=== PATIENT | male | born 1975 | race Two or more races ===

== ENCOUNTER 2018-01-09 09:33 | Outpatient (CLI) | payer OTHER ==
[2018-01-09] MEDS ORDERED: GADOBUTROL 10 MMOL/10 ML VIAL ONE (09:51)
[2018-01-09] MEDS ORDERED: GADOBUTROL 10 MMOL/10 ML VIAL IVP ONE (10:53)
--- NOTE | 2018-01-09 13:15 | MRI Preliminary Report ---
Exam: MRI BRAIN W/WO IMPRESSION: 1. There is a large lobular partially cystic predominantly intra-axial mass centered in the inferior right frontal lobe. Posterior extension into the suprasellar cistern and lamina terminalis is seen. P osterior inferior extension into the anterior right temporal lobe is seen. Right to left extension in to the left gyrus rectus is noted. This measures 39 x 74 x 57 mm. Encasement of right MCA and proxima l bilateral TIFFANIE is seen with mass effect. Findings are consistent with primary neoplasm. Differential considerations would include oligodendroglioma, astroblastoma, and glial neuronal tumor. Critical result: Findings are discussed with the marketing liaison for this patient on 01/09/2018 at 1306 hr s. [facility] SITE ID: [id number]
--- NOTE | 2018-01-09 13:31 | MRI Report ---
EXAM: MRI BRAIN WITHOUT AND WITH CONTRAST EXAM DATE: 01/09/2018 10:42 AM. CLINICAL HISTORY: Altered mental status, disorder of brain. Patient is experiencing intermittent epis odes of decreased awareness and confusion. COMPARISON: None. TECHNIQUE: Multiplanar, multisequence T1-weighted and fluid-sensitive MR sequences of the brain were performed. Sequences optimized for routine evaluation. Other: None. IV Contrast: 9 mL Gadavist. FINDINGS: Brain Volume: Normal for age. Parenchyma: There is a large heterogeneous mass centered in the inferior right frontal lobe at the fl oor of the anterior cranial fossa. This is extends posteriorly into the suprasellar cistern region an d lamina terminalis. Elevation and posterior displacement of the lamina terminalis and anterior corpu s callosum is evident. Inferior and posterior displacement of the optic chiasm is seen. Deep extensio n across the anterior perforated substance into the adjacent anterior right temporal lobe is seen. Ma ss-effect on the right MCA is noted. Mass-effect and encasement of proximal TIFFANIE is seen bilaterally. Mass crosses midline from [id number]-[id number] to involve the left orbital gyrus as well. Mass demonstrates predominantly heterogeneous hypointense with scattered isointense T1 signal without significant enhan cement. Predominant diffuse hyperintense T2 and FLAIR signal is seen. The mass measures approximately 39 x 74 x 57 mm (SI by AP by RL). Otherwise, there are a few scattered foci of T2/FLAIR bright signal seen in the cerebral hemispheres. No restricted diffusion is seen to suggest acute ischemia. No hemorrhage. Ventricles/Cisterns: Mass-effect on the anterior lateral ventricles is seen, greater on the right. Th ere is elevation and mild right to left midline shift. No acute hydrocephalus. No abnormal extra-axia l fluid collection or hemorrhage. Orbits: Symmetric and unremarkable. Sella Turcica: Effacement of the suprasellar cistern is noted. Posterior displacement of the pituitar y stalk is seen. Effacement of the superior aspect of the pituitary gland is noted. The cavernous sin uses are unremarkable. IAC: Symmetric and unremarkable. Vasculature: Normal signal flow void is seen in the major arterial structures at the skull base. The dural sinuses are patent and enhance normally. Sinuses: No acute sinus disease. Bones: No focal pathologic appearing marrow signal changes. Other: None. IMPRESSION: 1. There is a large lobular partially cystic, predominantly intra-axial mass centered in the inferior right frontal lobe. Posterior extension to the suprasellar cistern and lamina terminalis is seen. Po sterior-inferior extension into the anterior right temporal lobe is seen. Emmay-eb-[id number] extension int o the left gyrus rectus is noted. This measures 39 x 74 x 57 mm. Encasement of right MCA and proximal bilateral TIFFANIE is seen with mass-effect. Findings are consistent with a primary neoplasm. Differentia l considerations would include oligodendroglioma, astroblastoma, and glial neuronal tumor. Critical result: Findings are discussed with the market analyst for this patient on 01/09/2018 at 1306 hr s. [facility] Referring Provider Line: [phone] SITE ID: [id number]
== END 2018-01-09 09:34 | disposition home or self-care (01) ==
LOC: EDSEX → DI 09:33
PROVIDERS: ATTEND Student in an Organized Health Care Education/Training Program
DX: G93.9 Disorder of brain, unspecified (principal)
CPT/HCPCS: 70553; A9585

== ENCOUNTER 2018-03-25 09:41 | Outpatient (CLI) | payer OTHER ==
[~2018-03-25 09:41] MED LIST: GADOBUTROL 10 MMOL/10 ML SYRINGE ONE
[2018-03-25] MEDS ORDERED: GADOBUTROL 10 MMOL/10 ML SYRINGE IVP ONE (10:44)
--- NOTE | 2018-03-25 15:19 | MRI Report ---
EXAM: MRI BRAIN WITHOUT AND WITH CONTRAST EXAM DATE: 03/25/2018 10:51 AM. CLINICAL HISTORY: 42-year-old man with history of grade 2 astrocytoma status post resection on 2017. COMPARISON: 01/09/2018. TECHNIQUE: Multiplanar, multisequence T1-weighted and fluid-sensitive MR sequences of the brain were performed. Sequences optimized for routine evaluation. Other: None. IV Contrast: 9ML GADAVIST. FINDINGS: Parenchyma: Large, FLAIR hyperintense mass lesion centered in the right anterior inferior frontal lob e is again demonstrated. There has been interval partial resection/debulking of the anterolateral asp ect of the mass. The mass is not significantly changed in extent compared to the prior exam with exte nsion into the right insula, right anterior temporal lobe, and into the anterior septum pellucidum an d medial left frontal lobe. Cluster of small foci of enhancement are present in the deep aspect of th e mass adjacent to the genu of the right internal capsule (image 50, series 1002), increased from the prior exam. The cluster measures up to 13 mm in total diameter, previously 4 mm. No significant hemo rrhage apart from postsurgical changes. The remainder of the parenchyma is unremarkable except for several punctate foci of nonspecific FLAIR hyperintensity in the deep cerebral white matter, similar to the prior exam and a common finding in this age group. No evidence of acute infarct on diffusion-weighted sequence. Pituitary: Unremarkable. Ventricles and Extra-axial Spaces: Ttjwf-wu-[id number] midline shift measures proximal V4 millimeters at th e foramen of [place], previously 6 mm. There is persistent narrowing of the frontal horns of the later al ventricles bilaterally, right side more than left. Extra-axial spaces demonstrate postsurgical dur al enhancement and extradural fluid collection overlying the right frontal lobe measuring up to 9 mm in thickness. Orbits: Unremarkable. Sinuses: Paranasal sinuses and mastoid air cells are clear. Major Vascular Flow Voids: Intact. Dural Venous Sinuses and Major Central Veins: Patent on post-contrast images. The right transverse si nus is dominant. IMPRESSION: 1. Status post partial resection/debulking of large mass lesion centered in the right frontal lobe si nce the 01/09/2018 exam, consistent with history of astrocytoma. Small cluster of enhancement in the deep aspect of the tumor is increased compared to the prior exam. If there has been interval chemorad iation, increased enhancement may represent treatment related changes. However, the presence of enhan cement on the preoperative exam is concerning for astrocytoma of grade III or higher. [facility] Referring Provider Line: [phone] SITE ID: [id number]
== END 2018-03-25 09:42 | disposition home or self-care (01) ==
LOC: DI 09:41
PROVIDERS: ATTEND General Practice
DX: D49.6 Neoplasm of unspecified behavior of brain (principal)
CPT/HCPCS: 70553; A9585

== ENCOUNTER 2019-01-17 18:16 | Emergency (ER) | payer OTHER ==
--- NOTE | 2019-01-17 19:11 | ED Physician Documentation ---
PD HPI HEENT - Stated complaint Stated Complaint: LT EAR SWELLING/FATIGUE - Chief complaint Chief Complaint: Heent - History obtained from History obtained from: Patient - History of Present Illness Timing - onset: How many days ago (2) Timing - duration: Days (2) Timing - details: Abrupt onset, Still present Location: Left ear Worsens: Swalllowing Associated symptoms: Congestion. No: Fever, Facial swelling, Cough Recently seen: Not recently seen Review of Systems Constitutional: denies: Fever Ears: reports: Ear pain (left) Nose: reports: Congestion. denies: Rhinorrhea / runny nose Throat: denies: Sore throat Respiratory: reports: Cough GI: denies: Vomiting, Diarrhea Neurologic: denies: Altered mental status, Headache PD PAST MEDICAL HISTORY - Past Medical History Cardiovascular: None Respiratory: None Neuro: Other (brain tumor astrocytoma) - Past Surgical History Neuro: Craniotomy - Present Medications Home Medications: Ambulatory Orders Medication Instructions Recorded Confirmed Amoxicillin 500 mg PO TID #21 capsule 01/17/19 Cetirizine [ZyrTEC] 10 mg PO DAILY #15 tablet 01/17/19 Dexamethasone [Decadron] 4 mg PO DAILY #5 tablet 01/17/19 - Allergies Allergies/Adverse Reactions: Allergies Allergy/AdvReac Type Severity Reaction Status Date / Time No Known Drug Allergies Allergy Verified 01/17/19 18:24 - Social History Does the pt smoke?: No Smoking Status: Never smoker Does the pt drink ETOH?: No Does the pt have substance abuse?: No - Immunizations Immunizations are current?: Yes PD ED PE NORMAL - Vitals Vital signs reviewed: Yes - General General: Alert and oriented X 3, Well developed/nourished - HEENT HEENT: Pharynx benign. No: Ears normal (right okay; left with redness and fluid behind drum. ) - Neck Neck: Supple, no meningeal sign, Other (mild anterior adenopathy. ) - Cardiac Cardiac: RRR, No murmur - Respiratory Respiratory: Clear bilaterally - Abdomen Abdomen: Soft, Non tender - Derm Derm: Normal color, Warm and dry, No rash - Neuro Neuro: Alert and oriented X 3, No motor deficit, Normal speech Results - Vitals Vitals: Oxygen O2 Source Room air - Labs Labs: Laboratory Tests 01/17/19 19:47 Influenza A (Rapid) Negative Influenza B (Rapid) Negative PD MEDICAL DECISION MAKING - ED course Complexity details: considered differential, d/w patient Departure - Departure Disposition: 01 Home, Self Care Clinical Impression: Otitis media Qualifiers: Otitis media type: serous Chronicity: acute Laterality: left Recurrence: non- recurrent Qualified Code(s): H65.02 - Acute serous otitis media, left ear Condition: Stable Record reviewed to determine appropriate education?: Yes Instructions: ED Otitis Media Acute Adult Follow-Up: Jonathan Cook MD [Primary Care Provider] - Prescriptions: Amoxicillin 500 mg PO TID #21 capsule Cetirizine [ZyrTEC] 10 mg PO DAILY #15 tablet Dexamethasone [Decadron] 4 mg PO DAILY #5 tablet Comments: Your head CT shows the surgical changes and some residual mass but they say looks better than it was in March. There is no signs of obvious edema and cert ainly no acute bleeding. We will treat this as sinus congestion with ear congestion and infection. Use the amoxicillin 3 times a day for a week. Decadron daily for 5 days. Use antihistamine such as cetirizine daily for a week or 2. Tylenol or ibuprofen if needed for fever and pains. Your flu test is negative. It still could be influenza though more likely just a common virus/cold generally with the question of the ear infection as well. Discharge Date/Time: 01/17/19 21:04
[2019-01-17] MEDS ORDERED: ONDANSETRON ODT 4 MG TABLET TL STA (19:42)
[2019-01-17] MEDS ORDERED: AMOXICILLIN 250 MG CAPSULE PO STA (19:43)
[2019-01-17] MEDS ORDERED: DEXAMETHASONE 10 MG/ML VIAL PO STA (19:43)
[2019-01-17] MEDS ORDERED: diphenhydrAMINE 25 MG CAPSULE PO STA (19:43)
--- NOTE | 2019-01-17 20:44 | CT Report ---
Reason: headache and pressure; h/o brain CA and surgery Procedure Date: 01/17/2019 Accession Number: [id number] / [id number] Procedure: CT - HEAD WO CPT Code: FULL RESULT: EXAM: CT HEAD EXAM DATE: 01/17/2019 08:07 PM. CLINICAL HISTORY: 43-year-old with history of grade 2 astrocytoma post debulking presenting with headache. Evaluate for intracranial pathology. COMPARISON: Brain with and without contrast 03/25/2018 10:00 AM. TECHNIQUE: Multiaxial CT images were obtained from the foramen magnum to the vertex. Reformats: Sagittal and coronal. IV contrast: None. In accordance with CT protocol optimization, one or more of the following dose reduction techniques were utilized for this exam: automated exposure control, adjustment of mA and/or KV based on patient size, or use of iterative reconstructive technique. FINDINGS: Parenchyma: Post surgical changes of right frontotemporal craniotomy for resection of a right frontal lobe mass lesion. There is encephalomalacia and gliosis seen involving the right frontal lobe. Surrounding the resection cavity is masslike hyperdensity that when accounting for differences in technique appear slightly decreased in extent from MR brain 03/25/2018. There continues to be local mass-effect but no definite midline shift. Outside of the mass lesion resection cavity the cortical mantle carrasco-white distinction remains. No acute parenchymal hemorrhage seen. Extraaxial Spaces: Postsurgical changes of right frontal craniotomy. No new abnormal extra-axial fluid collection/mass seen. Cisterns appear patent. Ventricles: Effacement of the right lateral ventricle. No evidence of hydrocephalus or ventricular entrapment. No evidence of intraventricular hemorrhage. Sinuses and Orbits: The orbits appear normal. Small right maxillary mucosal retention cyst versus polyp. Mastoid air cells and middle ear cavities are clear. Bones: Post surgical changes of right frontotemporal craniotomy. No new calvarial fracture or defect seen. Other: None. IMPRESSION: 1. Post surgical changes of right frontal temporal craniotomy for resection/debulking of a grade 2 right frontal lobe astrocytoma. 2. There continues to be a mass surrounding the resection cavity that when accounting for differences in technique appear slightly decreased in extent from MR brain 03/25/2018. There is local mass effect but no significant midline shift. Consider MR brain with and without contrast for further evaluation of residual disease. 3. No definite acute infarct or acute intracranial hemorrhage seen. [facility]
[2019-01-17 20:58] VITALS: BP 131/90
== END 2019-01-17 21:04 | disposition home or self-care (01) ==
LOC: ED 18:16
DX: H65.02 Acute serous otitis media, left ear (principal); Z85.841 Personal history of malignant neoplasm of brain
CPT/HCPCS: 70450; 87275; 87276; 99283; A9270; Q0162

== ENCOUNTER 2019-05-16 21:01 | Emergency (ER) | payer OTHER ==
[2019-05-16 21:09] VITALS: BP 160/115
--- NOTE | 2019-05-16 21:18 | ED Physician Documentation ---
PD HPI HEENT - Stated complaint Stated Complaint: LT SIDE MOUTH PAIN - Chief complaint Chief Complaint: Heent - History obtained from History obtained from: Patient - History of Present Illness Timing - onset: Today (this morning) Pain level now: 8 Location: Mouth ("behind my last molar", lower left) Improves: Nothing Worsens: Other (palpation) Associated symptoms: No: Fever Similar symptoms before: Has not had sx before Recently seen: Not recently seen - Additional information Additional information: increasing pain and swelling left mandibular gingiva adjacent to left 2nd mandibular molar since this morning Review of Systems Constitutional: denies: Fever Throat: reports: Dental pain / toothache PD PAST MEDICAL HISTORY - Past Medical History Past Medical History: Yes Cardiovascular: None Respiratory: None Neuro: Other Endocrine/Autoimmune: None GI: None : None HEENT: None Psych: Anxiety Musculoskeletal: None Derm: None Other Past Medical History: brain tumor - Past Surgical History Past Surgical History: Yes Neuro: Craniotomy - Present Medications Home Medications: Ambulatory Orders Medication Instructions Recorded Confirmed Amlodipine/Atorvastatin 10 mg PO DAILY PM 05/16/19 05/16/19 [Amlodipine-Atorvast 10-10 mg] Benazepril/Hydrochlorothiazide 20 mg PO DAILY 05/16/19 05/16/19 [Benazepril-Hctz 20-25 mg Tab] Chlorhexidine Gluconate [Peridex] 15 ml MM BID #118 ml 05/16/19 Clindamycin HCl [Clindamycin 300MG 300 mg PO Q6H #28 capsule 05/16/19 CAP] DULoxetine [Cymbalta] 20 mg PO DAILY PM 05/16/19 05/16/19 Levetiracetam [Keppra] 500 mg PO TID 05/16/19 05/16/19 Lidocaine HCl [Lidocaine HCl 5 ml MM QID PRN #100 ml 05/16/19 Viscous] Phenytoin [Dilantin] 500 mg PO ONCE 05/16/19 05/16/19 oxyCODONE [Roxicodone] 5 - 10 mg PO Q6H PRN #20 tablet 05/16/19 - Allergies Allergies/Adverse Reactions: Allergies Allergy/AdvReac Type Severity Reaction Status Date / Time No Known Drug Allergies Allergy Verified 05/16/19 21:09 - Social History Does the pt smoke?: No Smoking Status: Never smoker Does the pt drink ETOH?: No Does the pt have substance abuse?: No - Immunizations Immunizations are current?: Yes - POLST Patient has POLST: No PD ED PE NORMAL - Vitals Vital signs reviewed: Yes - General General: Alert and oriented X 3, No acute distress, Well developed/nourished - HEENT HEENT: Moist mucous membranes, Other (no facial swelling or asymmetry) - Neck Neck: Supple, no meningeal sign PD ED PE EXPANDED - HEENT HEENT Visual: 1 - swelling (the gingiva is swollen and tender without fluctuance or discharge), tenderness Results - Vitals Vitals: Vital Signs - 24 hr 05/16/19 21:05 Temperature 36.9 C Heart Rate 88 Respiratory 18 Rate Blood Pressure 160/115 H O2 Saturation 99 Oxygen O2 Source Room air PD MEDICAL DECISION MAKING - ED course Complexity details: considered differential, d/w patient Departure - Departure Disposition: 01 Home, Self Care Clinical Impression: Pericoronitis Condition: Good Health Concerns: pain of gingiva adjacent to tooth Plan of Treatment: antibiotics, oral rinse, topical and oral analgesics, follow up with dentistry Care Goals: pain control, elimination of swelling and pain Assessment: see diagnosis Instructions: ED Abscess Dental Follow-Up: Jonathan Cook MD [Primary Care Provider] - Prescriptions: Chlorhexidine Gluconate [Peridex] 15 ml MM BID #118 ml Clindamycin HCl [Clindamycin 300MG CAP] 300 mg PO Q6H #28 capsule Lidocaine HCl [Lidocaine HCl Viscous] 5 ml MM QID PRN #100 ml PRN Reason: Pain oxyCODONE [Roxicodone] 5 - 10 mg PO Q6H PRN #20 tablet PRN Reason: Pain Discharge Date/Time: 05/16/19 21:38
[2019-05-16] MEDS ORDERED: CLINDAMYCIN 150 MG CAPSULE PO STA (21:19)
[2019-05-16] MEDS ORDERED: LIDOCAINE VISCOUS 2% 15 ML UDC MM STA (21:20)
[2019-05-16] MEDS ORDERED: oxyCODONE/ACET 5/325 Prepack 4 PO STA (21:20)
== END 2019-05-16 21:38 | disposition home or self-care (01) ==
LOC: ED 21:01
DX: K05.30 Chronic periodontitis, unspecified (principal)
CPT/HCPCS: 99283; A9270

== ENCOUNTER 2021-06-15 05:58 | Outpatient (CLI) | payer MEDICARE, OTHER | END 2021-06-15 05:59 | disposition critical access hospital (66) | LOC: EMS 05:58 | DX: S09.90XA Unspecified injury of head, initial encounter (principal); S91.202A Unspecified open wound of left great toe with damage to nail, initial encounter; W10.9XXA Fall (on) (from) unspecified stairs and steps, initial encounter; Y93.89 Activity, other specified; Y92.028 Other place in mobile home as the place of occurrence of the external cause | CPT/HCPCS: A0425; A0429 ==

== ENCOUNTER 2021-06-15 06:14 | Day surgery (SDC) | payer MEDICARE, OTHER ==
--- NOTE | 2021-06-15 07:46 | ED Physician Documentation ---
History of Present Illness - Stated complaint Stated Complaint: HEAD INJ - Chief complaint Chief Complaint: Trauma Hd/Nk - History obtained from History obtained from: Patient - Additonal information Additional information: Patient comes emergency department chief complaint of fall down the stairs this morning and left great toe pain and head injury. Patient states that he is blind and was navigating the hallway after going to the bathroom when he realized he had not paid attention to how far he had gone. Patient did not realize he got very close stairs and ended up walking right over the edge. He fell down approximately 13 stairs and hit his head, though he did not lose consciousness. He states he has a swollen area over the left posterior scalp. Patient also is complaining of significant left great toe pain. He denies any spinal pain. No rib or hip pain. No lower extremity pain otherwise. No other complaints at this time. No abdominal pain or flank pain. Review of Systems Ten Systems: 10 systems reviewed and negative Constitutional: reports: Reviewed and negative Eyes: reports: Reviewed and negative Ears: reports: Reviewed and negative Nose: reports: Reviewed and negative Throat: reports: Reviewed and negative Cardiac: reports: Reviewed and negative Respiratory: reports: Reviewed and negative GI: reports: Reviewed and negative : reports: Reviewed and negative Skin: reports: Reviewed and negative Musculoskeletal: reports: Extremity pain. denies: Neck pain Neurologic: reports: Head injury. denies: LOC Psychiatric: reports: Reviewed and negative Endocrine: reports: Reviewed and negative Immunocompromised: reports: Reviewed and negative PD PAST MEDICAL HISTORY - Past Medical History Past Medical History: Yes Cardiovascular: None Respiratory: None Neuro: Seizure disorder, Other Endocrine/Autoimmune: None GI: None : None HEENT: None Psych: Anxiety Musculoskeletal: None Derm: None Other Past Medical History: Brain CA, on chemotherapy - Past Surgical History Past Surgical History: Yes Neuro: Craniotomy - Present Medications Home Medications: Ambulatory Orders Medication Instructions Recorded Confirmed Amlodipine/Atorvastatin 10 mg PO DAILY PM 05/16/19 06/15/21 [Amlodipine-Atorvast 10-10 mg] Benazepril/Hydrochlorothiazide 20 mg PO DAILY 05/16/19 06/15/21 [Benazepril-Hctz 20-25 mg Tab] Chlorhexidine Gluconate [Peridex] 15 ml MM BID #118 ml 05/16/19 06/15/21 DULoxetine [Cymbalta] 20 mg PO DAILY PM 05/16/19 06/15/21 Levetiracetam [Keppra] 500 mg PO TID 05/16/19 06/15/21 Phenytoin [Dilantin] 500 mg PO ONCE 05/16/19 06/15/21 oxyCODONE [Roxicodone] 5 - 10 mg PO Q6H PRN #20 tablet 05/16/19 06/15/21 Melatonin 6 mg PO QPM 06/15/21 06/15/21 cephALEXin [Keflex] 500 mg PO Q6H #10 cap 06/15/21 oxyCODONE [Roxicodone] 5 mg PO Q4-6H #30 tablet 06/15/21 - Allergies Allergies/Adverse Reactions: Allergies Allergy/AdvReac Type Severity Reaction Status Date / Time No Known Drug Allergies Allergy Verified 06/15/21 06:26 - Social History Does the pt smoke?: No Smoking Status: Never smoker Does the pt drink ETOH?: No Does the pt have substance abuse?: No - Immunizations Immunizations are current?: Yes - POLST Patient has POLST: No PD ED PE NORMAL - Vitals Vital signs reviewed: Yes - General General: Alert and oriented X 3, No acute distress, Well developed/nourished - HEENT HEENT: Moist mucous membranes, Other (Approximately 3.5 cm diameter by 1 cm elevation hematoma, contusion and edema to posterior superior scalp. No bony deformity.) - Neck Neck: Supple, no meningeal sign, No bony TTP - Cardiac Cardiac: RRR, No murmur, Strong equal pulses - Respiratory Respiratory: No respiratory distress, Clear bilaterally - Abdomen Abdomen: Soft, Non tender, Non distended - Derm Derm: Normal color, Warm and dry, No rash, Other (Partial avulsion of left great toenail at the base, with disruption of germinal matrix. Base of toenail appears to have partially, obliquely reinserted into the germinal matrix tissue, causing tissue disruption. Distal nail is intact and attached.) - Extremities Extremities: No deformity, Other (No bony deformity or tenderness of left great toe, though distal bone is difficult to assess, secondary to the nail/nailbed injury that is noted above.) - Neuro Neuro: Alert and oriented X 3, No motor deficit, Normal speech, Other (Grossly intact.) - Psych Psych: Normal mood, Normal affect Results - Vitals Vitals: Vital Signs - 24 hr 06/15/21 06/15/21 06/15/21 09:00 12:00 15:00 Temperature Heart Rate 71 76 74 Respiratory 16 16 16 Rate Blood Pressure 150/114 H 156/104 H 162/106 H O2 Saturation 96 96 06/15/21 06/15/21 06/15/21 17:00 18:24 18:32 Temperature 36.6 C 0 C L Heart Rate 72 83 78 Respiratory 16 14 14 Rate Blood Pressure 125/102 H 166/102 H 188/108 H O2 Saturation 100 99 06/15/21 06/15/21 06/15/21 18:36 18:40 18:45 Temperature 36.6 C 36.6 C 36.6 C Heart Rate 88 79 86 Respiratory 13 14 14 Rate Blood Pressure 157/116 H 157/116 H 161/110 H O2 Saturation 98 99 100 06/15/21 06/15/21 06/15/21 18:50 18:56 19:01 Temperature 36.6 C 36.6 C 36.6 C Heart Rate 77 76 70 Respiratory 14 14 14 Rate Blood Pressure 177/118 H 168/108 H 115/115 H O2 Saturation 99 74 L 99 06/15/21 06/15/21 06/15/21 19:07 19:22 19:37 Temperature 36.8 C 36.8 C 36.7 C Heart Rate 75 76 72 Respiratory 18 18 19 Rate Blood Pressure 158/105 H 152/106 H 163/109 H O2 Saturation 95 94 97 06/15/21 06/15/21 06/15/21 19:50 20:00 20:09 Temperature 36.7 C 36.7 C 36.7 C Heart Rate 74 67 66 Respiratory 18 17 18 Rate Blood Pressure 164/113 H 150/103 H 137/96 H O2 Saturation 97 97 98 Oxygen O2 Source Room air - Labs Labs: Laboratory Tests 06/15/21 06/15/21 06/15/21 10:20 10:20 10:20 WBC 11.3 H RBC 4.64 L Hgb 15.1 Hct 43.1 MCV 92.9 MCH 32.5 H MCHC 35.0 RDW 12.3 Plt Count 213 MPV 8.8 Neut # (Auto) 9.0 H Lymph # (Auto) 1.4 L Jerome # (Auto) 0.8 Eos # (Auto) 0.1 Baso # (Auto) 0.0 Absolute Nucleated RBC 0.00 Nucleated RBC % 0.0 PT 13.4 H INR 1.2 Sodium 135 Potassium 3.8 Chloride 98 L Carbon Dioxide 27 Anion Gap 10.0 BUN 23 H Creatinine 1.1 Estimated GFR (MDRD) 72 L Glucose 112 H Calcium 8.9 Total Bilirubin 0.6 AST 22 ALT 18 Alkaline Phosphatase 87 Total Protein 6.8 Albumin 3.9 Globulin 2.9 Albumin/Globulin Ratio 1.3 Lipase 59 H - Rads (name of study) CT head Radiology: Final report received, EMP read indepedently, See rad report (nad) CT c-spine Radiology: Final report received, EMP read indepedently, See rad report (nad) L great toe XR Radiology: Final report received, EMP read indepedently, See rad report (comminuted fx distal phalanx) Procedures - General procedure General procedure: Removal of partially avulsed L great toenail. Performed with digital block (see below), entire nail removed. Laceration across entire base of nailbed/germinal matrix, with bone fragment protruding into wound. - Regional nerve block Nerve block site: Digital - note digit(s) (L great toe) Right / left: Left Nerve block anesthesia: Marcaine 0.5% Nerve block aftercare: Excellent anesthesia, No complications PD MEDICAL DECISION MAKING - ED course Complexity details: reviewed results, re-evaluated patient, considered differential, d/w patient ED course: Patient was sent for x-rays of the left great toe and CT scan of the head and C- spine. CT scans were unremarkable. XR toe showed a displaced, angulated fx of distal phalanx. I started pt on abx and spoke with Dr. Miranda of orthopedics, who stated he would take pt to OR for repair of fx. As such, I did not attempt repair of the wound. Pt and were informed of the plan, and were agreeable. Departure - Departure Disposition: ED Transfer to [facility] Clinical Impression: Avulsion of toenail of left foot, Fall down stairs Open fracture of great toe of left foot Qualifiers: Encounter type: initial encounter Phalanx: distal Fracture alignment: displaced Qualified Code(s): S92.422B - Displaced fracture of distal phalanx of left gr eat toe, initial encounter for open fracture Closed head injury Qualifiers: Encounter type: initial encounter Qualified Code(s): S09.90XA - Unspecified injury of head, initial encounter Condition: Serious Discharge Date/Time: 06/15/21 17:19
--- NOTE | 2021-06-15 07:54 | CT Report ---
PROCEDURE: HEAD WO INDICATIONS: fall down stairs/head injury TECHNIQUE: Noncontrast 4.5 mm thick angled axial sections acquired from the foramen magnum to the vertex. For r adiation dose reduction, the following was used: automated exposure control, adjustment of mA and/or kV according to patient size. COMPARISON: 01/17/2019. FINDINGS: Image quality: Excellent. CSF spaces: Basal cisterns are patent. No extra-axial fluid collections. Ventricles are normal in size and shape. 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 No midline shift. No intracranial masses or hemorrhag e. Small chronic lacunar infarct involving the left lobe is pallidus. Rodriguez-white matter interface is normal. Skull and face: Postsurgical changes compatible with prior right frontal-temporal craniotomy are stab le compared to the prior exam.. Visualized facial bones are intact, without suspicious lesions. Small to moderate sized left parietal scalp hematoma. Sinuses: Visualized sinuses and mastoids are clear. IMPRESSION: 1. No acute intracranial disease process. 2. No acute intracranial hemorrhage. 3. Small to moderate sized left parietal scalp hematoma. 4. Stable postsurgical changes. Reviewed by: Eda Mariano MD, PhD on 06/15/2021 7:53 AM PDT Approved by: Eda Mariano MD, PhD on 06/15/2021 7:53 AM PDT Station ID: [id number]
--- NOTE | 2021-06-15 08:04 | CT Report ---
PROCEDURE: CERVICAL SPINE WO INDICATIONS: fell down stairs/head injury TECHNIQUE: Noncontrast 3 mm thick sections acquired from the skull base to the T4 level. Sagittal and coronal r eformats were then constructed. For radiation dose reduction, the following was used: automated exp osure control, adjustment of mA and/or kV according to patient size. COMPARISON: None. FINDINGS: Image quality: Excellent. Bones: No fractures or dislocations. Visualized superior ribs are intact. Soft tissues: Prevertebral soft tissues are normal in thickness. No paravertebral hematomas. No ap ical pneumothoraces. Right IJ central venous catheter. IMPRESSION: No fracture. No acute osseous lesion. If there is continued clinical concern for pathology, then MRI should be considered for further evaluation. Reviewed by: Eda Mariano MD, PhD on 06/15/2021 8:03 AM PDT Approved by: Eda Mariano MD, PhD on 06/15/2021 8:03 AM [facility] Station ID: [id number]
[2021-06-15] MEDS ORDERED: BUPIVACAINE 0.5% PF 30 ML VIAL SUBQ ONE (08:05)
[2021-06-15] MEDS ORDERED: HYDROmorphone 1 MG/ML CARPUJECT IM STA (08:07)
--- NOTE | 2021-06-15 08:12 | XRAY Report ---
PROCEDURE: Toe(s) LT INDICATIONS: fall/injury/pain TECHNIQUE: 3 views of the left first toe(s) acquired. COMPARISON: None FINDINGS: Bones: Comminuted fracture of the distal left first phalange. Soft tissues: No suspicious soft tissue densities. IMPRESSION: Left first distal phalange fracture. Reviewed by: Eda Mariano MD, PhD on 06/15/2021 8:11 AM PDT Approved by: Eda Mariano MD, PhD on 06/15/2021 8:11 AM PDT Station ID: [id number]
[2021-06-15] MEDS ORDERED: ONDANSETRON 4 MG/2 ML VIAL IM STA (08:48)
[2021-06-15] MEDS ORDERED: BUPIVACAINE 0.5% PF 10 ML VIAL INFIL ONE (09:00)
[2021-06-15] MEDS ORDERED: AMPICILLIN/SULBACTAM 3 GM in SODIUM CHLORIDE 0.9% MINIBAG 100 ML IV STA (09:47)
[2021-06-15 10:30] LABS: BASOPHILS % (AUTO) 0.2 %; EOSINOPHILS # (AUTO) 0.1 10^3/uL (0.0-0.7); EOSINOPHILS % (AUTO) 0.5 %; HCT - HEMATOCRIT 43.1 % (42.0-52.0); HGB - HEMOGLOBIN 15.1 g/dL (14.0-18.0); LYMPHOCYTES # (AUTO) 1.4 10^3/uL (1.5-3.5); LYMPHOCYTES % (AUTO) 12.2 %; MEAN CORPUSCULAR HEMOGLOBIN 32.5 pg (27.0-31.0); MEAN CORPUSCULAR VOLUME 92.9 fL (80.0-94.0); MEAN PLATELET VOLUME 8.8 fL (7.4-11.4); MONOCYTES # (AUTO) 0.8 10^3/uL (0.0-1.0); MONOCYTES % (AUTO) 7.3 %; NEUTROPHILS % (AUTO) 79.4 %; PLT - PLATELET COUNT 213 10^3/uL (130-450); RED BLOOD COUNT 4.64 10^6/uL (4.70-6.10); RED CELL DISTRIBUTION WIDTH 12.3 % (12.0-15.0); WHITE BLOOD COUNT 11.3 x10^3/uL (4.8-10.8)
[2021-06-15 10:40] LABS: INR 1.2 (0.8-1.2); PT - PROTHROMBIN TIME 13.4 secs (9.9-12.6)
[2021-06-15 10:43] LABS: ALBUMIN 3.9 g/dL (3.2-5.5); ALBUMIN/GLOBULIN RATIO 1.3 (1.0-2.2); BILIRUBIN,TOTAL 0.6 mg/dL (0.2-1.0); CALCIUM 8.9 mg/dL (8.5-10.3); CREATININE 1.1 mg/dL (0.6-1.2); POTASSIUM 3.8 mmol/L (3.5-5.0); TOTAL PROTEIN 6.8 g/dL (6.7-8.2)
--- NOTE | 2021-06-15 11:26 | ANESTHESIA ---
Pre-Anesthesia VS, & Labs - Diagnosis Left great toe open fracture - Procedure I&D and percutaneous pinning left great toe fracture Vital Signs: Temp Pulse Resp BP Pulse Ox 36.3 C L 71 16 150/114 H 96 06/15/21 06:15 06/15/21 09:00 06/15/21 09:00 06/15/21 09:00 06/15/21 09:00 Height: 5 ft 11 in Weight (kg): 96.479 kg Body Mass Index: 29.6 BMI Classification: Overweight - NPO >8 hours - Lab Results Current Lab Results: Laboratory Tests 06/15/21 10:20: PT 13.4 H, INR 1.2 06/15/21 10:20: Sodium 135, Potassium 3.8, Chloride 98 L, Carbon Dioxide 27, Anion Gap 10.0, BUN 23 H, Creatinine 1.1, Estimated GFR (MDRD) 72 L, Glucose 112 H, Calcium 8.9, Total Bilirubin 0.6, AST 22, ALT 18, Alkaline Phosphatase 87, Total Protein 6.8, Albumin 3.9, Globulin 2.9, Albumin/Globulin Ratio 1.3, Lipase 59 H 06/15/21 10:20: WBC 11.3 H, RBC 4.64 L, Hgb 15.1, Hct 43.1, MCV 92.9, MCH 32.5 H , MCHC 35.0, RDW 12.3, Plt Count 213, MPV 8.8, Neut # (Auto) 9.0 H, Lymph # (Auto) 1.4 L, Schley # (Auto) 0.8, Eos # (Auto) 0.1, Baso # (Auto) 0.0, Absolute Nucleated RBC 0.00, Nucleated RBC % 0.0 Lab results reviewed: Yes Fish Bones: 06/15/21 10:20 06/15/21 10:20 Home Medications and Allergies Home Medications: Ambulatory Orders Melatonin 6 mg PO QPM 06/15/21 Amlodipine/Atorvastatin [Amlodipine-Atorvast 10-10 mg] 10 mg PO DAILY PM 05/16/19 Benazepril/Hydrochlorothiazide [Benazepril-Hctz 20-25 mg Tab] 20 mg PO DAILY 05/16/19 DULoxetine [Cymbalta] 20 mg PO DAILY PM 05/16/19 Levetiracetam [Keppra] 500 mg PO TID 05/16/19 Phenytoin [Dilantin] 500 mg PO ONCE 05/16/19 Melatonin 6 mg PO QPM 06/15/21 Allergies/Adverse Reactions: Allergies Allergy/AdvReac Type Severity Reaction Status Date / Time No Known Drug Allergies Allergy Verified 06/15/21 06:26 Anes History & Medical History - Anesthetic History Anesthesia Complications: reports: No previous complications - Medical History Cardiovascular: reports: None Pulmonary: reports: None Gastrointestinal: reports: None Urinary: reports: None Neuro: reports: Seizure disorder, Other (Brain cancer s/p craniotomy. Blind) Musculoskeletal: reports: None Endocrine/Autoimmune: reports: None Blood Disorders: reports: None Skin: reports: None Smoking Status: Never smoker Psychosocial: reports: No issues indicated History of Cancer?: Yes (brain cancer, currently on chemo) Other Past Medical History: Brain CA, on chemotherapy - Surgical History Neurologic: reports: Craniotomy Exam General: Alert, Oriented x3, Cooperative, No acute distress Dental: WNL Mouth Openin Fingerbreadth Neck Mobility: Normal Mallampati classification: II Thyromental Distance: 4-6 cm Mental/Cognitive Status: Alert/Oriented X3, Normal for patient Plan Anesthesia Type: General Consent for Procedure(s) Verified and Reviewed: Yes Code Status: Attempt Resuscitation ASA classification: 3-Severe systemic disease Is this case an emergency?: No
--- NOTE | 2021-06-15 14:15 | HISTORY & PHYSICAL EXAMINATION ---
HPI - History Obtained From History obtained from: Patient, Family Exam limitations: No limitations - History of Present Illness HPI Comment/Other: This is a 46-year-old man who has a history of brain cancer, reportedly in remission but maintains chemotherapy off and on. He is legally blind and was walking to the bathroom when he got disoriented and accidentally went down the stairs. He fell down the stairs. Denies loss of consciousness but does have left great toe pain with some deformity and laceration. He denies previous problems with his left foot. He was seen in the emergency room, had local wound care and antibiotics. PMH/PSH - Past Medical History Cardiovascular: positive: None Respiratory: positive: None Neuro: positive: Seizure disorder, Other (Brain cancer s/p craniotomy. Blind) Endocrine/Autoimmune: positive: None GI: positive: None : positive: None HEENT: positive: None Psych: positive: Anxiety Musculoskeletal: positive: None Derm: positive: None MRSA Hx?: No Other Past Medical History: Brain CA, on chemotherapy - Past Surgical History Neuro: positive: Craniotomy Social & Family Hx - Social History Does the pt smoke?: No Smoking Status: Never smoker Does the pt drink ETOH?: No Does the pt have substance abuse?: No - POLST Patient has POLST: No Meds/Allgy - Home Medications Home Medications: Ambulatory Orders Medication Instructions Recorded Confirmed Amlodipine/Atorvastatin 10 mg PO DAILY PM 05/16/19 06/15/21 [Amlodipine-Atorvast 10-10 mg] Benazepril/Hydrochlorothiazide 20 mg PO DAILY 05/16/19 06/15/21 [Benazepril-Hctz 20-25 mg Tab] Chlorhexidine Gluconate [Peridex] 15 ml MM BID #118 ml 05/16/19 06/15/21 DULoxetine [Cymbalta] 20 mg PO DAILY PM 05/16/19 06/15/21 Levetiracetam [Keppra] 500 mg PO TID 05/16/19 06/15/21 Phenytoin [Dilantin] 500 mg PO ONCE 05/16/19 06/15/21 oxyCODONE [Roxicodone] 5 - 10 mg PO Q6H PRN #20 tablet 05/16/19 06/15/21 Melatonin 6 mg PO QPM 06/15/21 06/15/21 - Allergies Allergies/Adverse Reactions: Allergies Allergy/AdvReac Type Severity Reaction Status Date / Time No Known Drug Allergies Allergy Verified 06/15/21 06:26 Exam - Vital Signs Vital Signs: Vital Signs x48h Temp Pulse Resp BP Pulse Ox 06/15/21 09:00 71 16 150/114 H 96 06/15/21 07:08 66 16 160/107 H 99 06/15/21 06:15 36.3 C L 70 18 154/105 H 98 - Physical Exam General Appearance: positive: No acute distress Neck: positive: Nml inspection Respiratory: positive: Chest non-tender, No respiratory distress Cardiovascular: positive: Regular rate & rhythm Peripheral Pulses: positive: 2+ Skin: positive: Color nml Neurologic/Psychiatric: positive: Oriented x3 Results - Lab Results Fish Bones: 06/15/21 10:20 06/15/21 10:20 Other Lab Results: Lab Results x24hrs 06/15/21 06/15/21 06/15/21 Range/Units 10:20 10:20 10:20 WBC 11.3 H (4.8-10.8) x10^3/uL RBC 4.64 L (4.70-6.10) 10^6/uL Hgb 15.1 (14.0-18.0) g/dL Hct 43.1 (42.0-52.0) % MCV 92.9 (80.0-94.0) fL MCH 32.5 H (27.0-31.0) pg MCHC 35.0 (32.0-36.0) g/dL RDW 12.3 (12.0-15.0) % Plt Count 213 (130-450) 10^3/uL MPV 8.8 (7.4-11.4) fL Neut # (Auto) 9.0 H (1.5-6.6) 10^3/uL Lymph # (Auto) 1.4 L (1.5-3.5) 10^3/uL [place] # (Auto) 0.8 (0.0-1.0) 10^3/uL Eos # (Auto) 0.1 (0.0-0.7) 10^3/uL Baso # (Auto) 0.0 (0.0-0.1) 10^3/uL Absolute Nucleated RBC 0.00 x10^3/uL Nucleated RBC % 0.0 /100WBC PT 13.4 H (9.9-12.6) secs INR 1.2 (0.8-1.2) Sodium 135 (135-145) mmol/L Potassium 3.8 (3.5-5.0) mmol/L Chloride 98 L (101-111) mmol/L Carbon Dioxide 27 (21-32) mmol/L Anion Gap 10.0 (6-13) BUN 23 H (6-20) mg/dL Creatinine 1.1 (0.6-1.2) mg/dL Estimated GFR (MDRD) 72 L (>89) Glucose 112 H (70-100) mg/dL Calcium 8.9 (8.5-10.3) mg/dL Total Bilirubin 0.6 (0.2-1.0) mg/dL AST 22 (10-42) IU/L ALT 18 (10-60) IU/L Alkaline Phosphatase 87 (42-121) IU/L Total Protein 6.8 (6.7-8.2) g/dL Albumin 3.9 (3.2-5.5) g/dL Globulin 2.9 (2.1-4.2) g/dL Albumin/Globulin Ratio 1.3 (1.0-2.2) Lipase 59 H (22-51) U/L - Diagnostic Imaging Results Diagnostic Imaging Results: negative: Read independently (Displaced fracture left distal phalanx) Impression/Plan - Problem List Problem List: 1. Open fracture left distal phalanx Plan irrigation debridement of open fracture and K wire stabilization. I discussed the risk, goals and likelihood achieving goals, alternatives to surgery, disability and rarely . The plan will be to do the procedure as outpatient basis. His main risk will be infection. He does have some immunosuppression with chemotherapy and history of brain cancer. He is agreement to the surgery, so is his . I explained the procedure to them both. They seem to have understand the procedure and are in agreement to the surgery, signed informed consent.
[2021-06-15] MEDS ORDERED: MIDAZOLAM 2 MG/2 ML VIAL ONE (16:58)
[2021-06-15] MEDS ORDERED: PROPOFOL 200 MG/20 ML VIAL IVP ONE (16:58)
[2021-06-15] MEDS ORDERED: LIDOCAINE-MPF 2% 5 ML VIAL ONE (16:58)
[2021-06-15] MEDS ORDERED: fentaNYL 100 MCG/2 ML VIAL ONE (16:58)
[2021-06-15] MEDS ORDERED: ceFAZolin 1 GM VIAL ONE (17:34)
[2021-06-15] MEDS ORDERED: fentaNYL 100 MCG/2 ML VIAL IVP PRN (17:44)
[2021-06-15] MEDS ORDERED: MORPHINE 2 MG/ML CARPUJECT IVP PRN (17:44)
[2021-06-15] MEDS ORDERED: NALOXONE 0.4 MG/ML VIAL IVP PRN (17:44)
[2021-06-15] MEDS ORDERED: ATROPINE ABBOJECT 1 MG/10 ML SYRINGE IVP PRN (17:44)
[2021-06-15] MEDS ORDERED: HYDROmorphone 0.5 MG/0.5 ML SYRINGE IVP PRN (17:44)
[2021-06-15] MEDS ORDERED: ONDANSETRON 4 MG/2 ML VIAL IVP PRN ×2 (17:44→18:21)
[2021-06-15] MEDS ORDERED: LACTATED RINGERS 1,000 ML IV SCH (18:00)
[2021-06-15] MEDS ORDERED: BUPIVACAINE 0.5% PF 30 ML VIAL INFIL ONE ×2 (18:07)
[2021-06-15] MEDS ORDERED: BUPIVACAINE 0.5% PF 30 ML VIAL ONE (18:08)
[2021-06-15] MEDS ORDERED: ONDANSETRON 4 MG/2 ML VIAL ONE ×2 (18:13→18:36)
[2021-06-15] MEDS ORDERED: KETOROLAC 15 MG/ML VIAL IVP STA (18:21)
[2021-06-15] MEDS ORDERED: oxyCODONE 5 MG TABLET PO PRN (18:21)
[2021-06-15] MEDS ORDERED: LACTATED RINGERS 1,000 ML IV ONE ×2 (18:22→19:00)
--- NOTE | 2021-06-15 18:23 | OPERATIVE REPORT ---
Operative Report - General Procedure Date: 06/15/21 Planned Procedure: Irrigation debridement open fracture distal phalanx left great toe with open reduction internal fixation Pre-Op Diagnosis: Open fracture left distal phalanx Procedure Performed: Irrigation debridement, open reduction internal fixation distal phalanx left great toe with repair of nailbed Post Op Diagnosis: Same as preoperative diagnosis - Procedure Note Primary Surgeon: Jimmy Miranda MD Secondary Surgeon: Da JONES Anesthesia Provider: Daily Waddell CRNA Anesthesia Technique: General mask, Regional block Estimated Blood Loss (mL): 3 Indications: This is a 46-year-old gentleman who has poor vision, stumbled down some stairs and sustained isolated injury to left great toe. His distal portion of the left great toe was injured with disruption of nail plate, nail bed and open fracture distal phalanx left great toeHe had disruption of the nailbed, fracture of distal phalanx which is transverse and this was confirmed with radiographs and clinical examinationThere is no vascular compromise to left great toe Findings: The laceration of the nailbed was transverse in line with the transverse fracture left distal phalanx. This involved the nailbed. The nail plate Was not present.The disruption of the nailbed directly communicated with the fracture. The laceration measured 1.5 cm through the nailbed. Complications: None - Other Other Information/Narrative: Patient was brought to the operating room and placed in the supine position. After satisfactory anesthesia achieved, left lower extremity was prepped and draped in a sterile manner in the usual fashion. A triangular knee positioner was inserted to achieve a plantigrade foot. A sterile scrub brush with Betadine and then Betadine paint was utilized. A timeout procedure was performed by the entire operating room team and all were in agreement. He had received Ancef in the emergency room and additional 2 g were given prior to the procedure. The fracture was opened and gently curetted, removing hematoma. The fracture was thoroughly irrigated with normal saline using bulb syringe. Over a liter of f luid was used to irrigate the fracture which was grossly clean. A 0.062 inch K wire was inserted from the tip of the toe, across the fracture site but avoiding the interphalangeal joint. This stabilized the fracture. The nailbed was repaired with a running 4-0 Monocryl suture. The nailbed approximated well. The K wire was cut external to skin and covered with a sterile ball. The nailbed was covered with Xeroform dressing. A sterile gauze bulky dressing was applied over the Xeroform, covered with cast padding and a Negrito wrap. He can continue with a postop shoe, heel weightbearing, elevation and recheck in the office next week at the orthopedic clinic. He tolerated the procedure well. A physician front end assistant was utilized to help with exposure, positioning, reduction and internal fixation of fracture
--- NOTE | 2021-06-15 18:47 | ANESTHESIA POST OP EVALUATION ---
Anesthesia Post Eval - Post Anesthesia Eval Vitals: Last Vital Signs Temp 36.6 C 06/15/21 18:45 Pulse 86 06/15/21 18:45 Resp 14 06/15/21 18:45 BP 161/110 H 06/15/21 18:45 Pulse Ox 100 06/15/21 18:45 CV Function Including HR & BP: Stable Pain Control: Satisfactory Nausea & Vomiting: Negative Mental Status: Baseline Respiratory Status: Airway Patent Hydration Status: Satisfactory Anesthesia Complications: None
[2021-06-15] MEDS ORDERED: PROMETHAZINE INJ 6.25 MG in SODIUM CHLORIDE 0.9% 50 ML IV PRN (18:53)
[2021-06-15] MEDS ORDERED: PROMETHAZINE 25 MG/1 ML VIAL ONE (18:53)
[2021-06-15 20:10] VITALS: BP 137/96
--- NOTE | 2021-06-15 21:09 | XRAY Report ---
PROCEDURE: OR C-Arm Procedure INDICATIONS: ORIF PINNING GREAT TOE TECHNIQUE: Single view COMPARISON: Trauma plain films earlier same day.. FINDINGS: A single K wire extends longitudinally through the area of fracture involving the distal phalanx of t he great toe, establishing normal alignment for healing. IMPRESSION: Excellent anatomic alignment established after K wire fixation after transverse fracture malalignment identified earlier same day at the distal phalanx of the great toe. Reviewed by: Charli Billingsley MD on 06/15/2021 9:07 PM PDT Approved by: Charli Billingsley MD on 06/15/2021 9:07 PM PDT Station ID: [id number]
== END 2021-06-15 20:36 | disposition home or self-care (01) ==
LOC: EDUNIT# → SUPCPDRO 06:14 → ED 06:14 → SDS 14:04 → MS2 19:05 → SDS 20:36
PROVIDERS: ATTEND Orthopaedic Surgery
DX: S92.422B Displaced fracture of distal phalanx of left great toe, initial encounter for open fracture (principal); S00.03XA Contusion of scalp, initial encounter; W10.8XXA Fall (on) (from) other stairs and steps, initial encounter; Y92.018 Other place in single-family (private) house as the place of occurrence of the external cause; C71.9 Malignant neoplasm of brain, unspecified; H54.8 Legal blindness, as defined in USA; G40.909 Epilepsy, unspecified, not intractable, without status epilepticus; F41.9 Anxiety disorder, unspecified; D84.821 Immunodeficiency due to drugs; Z79.899 Other long term (current) drug therapy
CPT/HCPCS: 11750; 28505; 36415; 70450; 72125; 73660; 80053; 83690; 85025; 85610; 96365; 96372; 99285; C1713; J1170; J7120

== ENCOUNTER → 2021-07-25 | Outpatient (CLI) | payer MEDICARE, OTHER ==
--- NOTE | 2021-07-25 17:21 | XRAY Report ---
PROCEDURE: Foot 3 View LT INDICATIONS: DISPLACED FX OF DISTAL PHALANX OF L GREAT TOE TECHNIQUE: 3 views of the foot were acquired. COMPARISON: 06/15/2021 FINDINGS: Bones: Interval operative fixation of the distal phalanx of the great toe with a single fixation wire or pin significant improvement in alignment, near overall anatomic alignment of a severely comminute d fracture. No suspicious bony lesions. Soft tissues: No tibiotalar joint effusion. Achilles tendon appears normal. IMPRESSION: Excellent postoperative appearance of a severely comminuted distal phalanx great toe fracture. Reviewed by: Juan Benitez MD on 07/25/2021 5:20 PM PDT Approved by: Juan Benitez MD on 07/25/2021 5:20 PM PDT Station ID: [id number]
== END ==
LOC: DI.N 15:49
PROVIDERS: ATTEND Physician Assistant
DX: S92.422D Displaced fracture of distal phalanx of left great toe, subsequent encounter for fracture with routine healing (principal)

== ENCOUNTER 2021-08-15 11:33 | Outpatient (CLI) | payer MEDICARE, OTHER ==
--- NOTE | 2021-08-15 15:10 | XRAY Report ---
PROCEDURE: Foot 3 View LT INDICATIONS: FRACTURE OF DISTAL PHALANX OF LEFT GREAT TOE TECHNIQUE: 3 views of the foot were acquired. COMPARISON: Left foot radiographs 07/25/2021, great toe radiographs 06/15/2021 FINDINGS: Bones: Interval removal of percutaneous fixation pin from the first distal phalangeal fracture. The t iming of the lucent fracture line is still visualized without definite osseous bridging, although sma ller comminuted fragments may have healed. The alignment is anatomic. No new osseous abnormality is s een. Soft tissues: No suspicious soft tissue calcification IMPRESSION: Interval removal of the first distal phalangeal fixation wire with unchanged, anatomic alignment. Por tions of the lucent fracture line are still visualized. Reviewed by: Eddie Fernando MD on 08/15/2021 3:09 PM PDT Approved by: Eddie Fernando MD on 08/15/2021 3:09 PM PDT Station ID: [id number]
== END 2021-08-15 11:34 | disposition home or self-care (01) ==
LOC: DI.N 11:33
PROVIDERS: ATTEND Physician Assistant
DX: S92.422D Displaced fracture of distal phalanx of left great toe, subsequent encounter for fracture with routine healing (principal)

== ENCOUNTER 2021-08-24 14:17 | Outpatient (CLI) | payer MEDICARE, OTHER ==
--- NOTE | 2021-08-24 15:27 | Ultrasound Report ---
PROCEDURE: Retroperitoneal INDICATIONS: ACUTE KIDNEY INJURY TECHNIQUE: Real-time scanning was performed of the retroperitoneal organs, with image documentation. COMPARISON: None. FINDINGS: Kidneys: Kidneys are normal in size. Right kidney measures 10.1 cm long; left kidney measures 11.2 cm long. Right renal cortical thickness is 1.8 cm; left renal cortical thickness is 1.6 cm. No south d masses, hydronephrosis, or nephrolithiasis. No significant abnormality of the urinary bladder. Bilateral ureteral jets are seen. The prevoid volume measures 69.5 mL. No residual postvoid volume. The prostate measures 3.3 x 3.5 x 2.8 cm. IMPRESSION: No significant abnormality. Reviewed by: Sheng Jamison MD on 08/24/2021 3:26 PM PDT Approved by: Sheng Jamison MD on 08/24/2021 3:26 PM PDT Station ID: [id number]
== END 2021-08-24 14:18 | disposition home or self-care (01) ==
LOC: DI 14:17
PROVIDERS: ATTEND Obstetrics & Gynecology
DX: N17.9 Acute kidney failure, unspecified (principal)

== ENCOUNTER 2023-10-09 04:02 | Outpatient (CLI) | payer MEDICARE, OTHER | END 2023-10-09 04:03 | disposition EMS.NT | LOC: EMS 04:02 | DX: Z03.89 Encounter for observation for other suspected diseases and conditions ruled out (principal) ==

== ENCOUNTER 2023-11-23 14:48 | Outpatient (CLI) | payer MEDICARE, OTHER | END 2023-11-23 14:49 | disposition EMS.NT | LOC: EMS 14:48 | DX: Z04.3 Encounter for examination and observation following other accident (principal); W18.39XA Other fall on same level, initial encounter; Y93.89 Activity, other specified; Y92.000 Kitchen of unspecified non-institutional (private) residence as the place of occurrence of the external cause; H54.3 Unqualified visual loss, both eyes ==